=== PATIENT | female | born 1935 | race Caucasian/White ===

== ENCOUNTER 2018-02-28 08:18 | Inpatient (IN) | payer OTHER ==
[2018-02-28] MEDS: TRANEXAMIC ACID 1,000 MG in D5W 100 ML AT CLOSURE X1 IVPB (06:30)
[2018-02-28] MEDS: CEFAZOLIN 2 GM/50 ML (PMX) 50 ML (FOR WT < 120 KG) IVPB (06:30)
[2018-02-28] MEDS: TRANEXAMIC ACID 1,000 MG in D5W 100 ML AT INCISION X1 IVPB (06:30)
[~2018-02-28 08:18] MED LIST: BUPIVACAINE 0.75%/DEXT (SPINAL) 2 ML INJ; EPHEDrine SULFATE 50 MG/5 ML SYG
[2018-02-28] MEDS ORDERED: MAGNESIUM HYDROXIDE 30ML CUP PO (09:00)
[2018-02-28] MEDS ORDERED: NA PHOSPHATE/BIPHOS 133 ML ENEMA PR (09:00)
[2018-02-28] MEDS ORDERED: NACL 0.9% 3 ML SYG IV (09:00)
[2018-02-28] MEDS ORDERED: NALOXONE (0.4 MG/ML) INJ IV ×2 (09:00→12:30)
[2018-02-28] MEDS ORDERED: DIPHENHYDRAMINE 50 MG INJ IV ×3 (09:00→12:30)
[2018-02-28] MEDS ORDERED: BETHANECHOL 25 MG TAB PO (09:00)
[2018-02-28] MEDS ORDERED: BISACODYL 10 MG SUPP PR (09:00)
[2018-02-28] MEDS ORDERED: oxyCODONE 5 MG TAB PO ×2 (09:00)
[2018-02-28] MEDS ORDERED: SENNA/DOCUSATE NA (8.6MG/50MG) TAB PO (09:00)
[2018-02-28] MEDS ORDERED: CEFAZOLIN 1 GM INJ (10:08)
[2018-02-28] MEDS ORDERED: ROCURONIUM 50 MG INJ (10:08)
[2018-02-28] MEDS ORDERED: FENTAnyl 50 MCG/ML VIAL (10:08)
[2018-02-28] MEDS ORDERED: PROPOFOL 20 ML (10:08)
[2018-02-28] MEDS ORDERED: MIDAZOLAM 1 MG/ML 2 ML INJ (10:08)
[2018-02-28] MEDS ORDERED: NEOSTIGMINE 3 MG/3 ML SYRINGE (10:08)
[2018-02-28] MEDS ORDERED: GLYCOPYRROLATE 0.4 MG INJ (10:08)
[2018-02-28] MEDS ORDERED: ONDANSETRON 4 MG INJ (10:09)
[2018-02-28] MEDS ORDERED: DEXAMETHASONE 4 MG/ML 1 ML INJ (10:09)
[2018-02-28] MEDS ORDERED: morphine SULFATE/PF (10 MG/10 ML) INJ (10:10)
[2018-02-28] MEDS ORDERED: EPINEPHrine 1 MG INJ (10:10)
[2018-02-28] MEDS ORDERED: ALBUMIN HUMAN 5% 0 ML (10:18)
[2018-02-28] MEDS ORDERED: SUGAMMADEX SODIUM 200 MG/2 ML VIAL IV (11:36)
[2018-02-28] MEDS: BACITRACIN 50000 UNITS INJ (12:17)
[2018-02-28] MEDS: POLYMYXIN B 500000 UNIT INJ (12:18)
[2018-02-28] MEDS ORDERED: LABETALOL HCL 20MG INJ IV ×2 (12:30)
[2018-02-28] MEDS ORDERED: FENTAnyl 50 MCG/ML VIAL IV ×6 (12:30)
[2018-02-28] MEDS ORDERED: TRIMETHOBENZAMIDE 100 MG/ML VIAL IM ×2 (12:30)
[2018-02-28] MEDS ORDERED: hydrALAzine 20 MG INJ IV ×2 (12:30)
[2018-02-28] MEDS ORDERED: ALBUTEROL 0.083% (NEB) 2.5 MG/3 ML AMP HHN ×2 (12:30)
[2018-02-28] MEDS ORDERED: MEPERIDINE 25 MG INJ IV ×2 (12:30)
[2018-02-28] MEDS ORDERED: IPRATROPIUM (NEB) 0.5 MG/2.5 ML AMP HHN ×2 (12:30)
[2018-02-28] MEDS ORDERED: ONDANSETRON 4 MG INJ IV ×2 (12:30)
[2018-02-28] MEDS ORDERED: OXYCODONE/ACETAMINOPHEN (5/325) TAB PO ×4 (12:30)
[2018-02-28] MEDS ORDERED: HYDROmorphONE 1 MG/5 ML IV SYRINGE IV ×6 (12:30)
[2018-02-28] MEDS ORDERED: MIDAZOLAM 1 MG/ML 2 ML INJ IV ×2 (12:30)
[2018-02-28] MEDS ORDERED: EPHEDrine SULFATE 50 MG/5 ML SYG IV ×2 (12:30)
[2018-02-28] MEDS: CEFAZOLIN 1 GM/50 ML (PMX) 50 ML IVPB ×2 (13:49→18:18)
[2018-02-28] MEDS: ASPIRIN (EC) 325 MG TAB PO (13:50)
[2018-02-28] MEDS: DOCUSATE SODIUM 100 MG CAP PO (13:50)
[2018-02-28] MEDS: SOD CHLORIDE 0.9% 1,000 ML IV ×2 (14:46→18:18)
[2018-02-28] MEDS: ONDANSETRON 4 MG INJ IV ×3 (14:48→20:22)
[2018-02-28] MEDS: GABAPENTIN 100 MG CAP PO (20:21)
[2018-02-28] MEDS: ATORVASTATIN 20 MG TAB PO (20:21)
[2018-02-28] MEDS: DULOXETINE 30 MG CAP DR PO (21:14)
[2018-02-28] MEDS: DONEPEZIL 10 MG TAB PO (21:15)
[2018-03-01] MEDS: CEFAZOLIN 1 GM/50 ML (PMX) 50 ML IVPB (01:12)
[2018-03-01] MEDS: ONDANSETRON 4 MG INJ IV (03:51)
[2018-03-01 04:56] LABS: ADD MAN DIFF? NO
[2018-03-01 05:01] LABS: BASOPHILS % 0.1 % (0.0-2.0); HEMATOCRIT 35.3 % (37.0-47.0); HEMOGLOBIN 11.4 g/dl (12.0-16.0); LYMPHOCYTES # 0.7 10^3/ul (0.8-2.9); LYMPHOCYTES % 6.9 % (15.0-51.0); MEAN CORPUSCULAR HEMOGLOBIN 29.7 pg (29.0-33.0); MEAN CORPUSCULAR HGB CONC 32.3 g/dl (32.0-37.0); MEAN CORPUSCULAR VOLUME 91.9 fl (82.0-101.0); MEAN PLATELET VOLUME 9.3 fl (7.4-10.4); MONOCYTE # 0.7 10^3/ul (0.3-0.9); MONOCYTES % 7.6 % (0.0-11.0); NEUTROPHIL # 8.1 10^3/ul (1.6-7.5); NEUTROPHILS % 85.2 % (39.0-77.0); PLATELET COUNT 215 10^3/UL (140-415); RED BLOOD COUNT 3.84 10^6/ul (4.20-5.40); RED CELL DISTRIBUTION WIDTH 13.4 % (11.5-14.5)
[2018-03-01 05:01] LABS: WHITE BLOOD COUNT 9.6 10^3/ul (4.8-10.8)
[2018-03-01 05:25] LABS: ANION GAP 11 (8-16); BLOOD UREA NITROGEN 17 mg/dl (7-20); CALCIUM 8.8 mg/dl (8.4-10.2); CARBON DIOXIDE 26 mmol/L (21-31); CHLORIDE 105 mmol/L (97-110); CREATININE 0.64 mg/dl (0.44-1.00); GLUCOSE 126 mg/dl (70-220); SODIUM 137 mmol/L (135-144)
[2018-03-01 05:37] LABS: PHOSPHORUS 4.5 mg/dl (2.5-4.9)
[2018-03-01 05:37] LABS: MAGNESIUM 1.8 mg/dl (1.7-2.5)
[2018-03-01] MEDS: PANTOPRAZOLE (EC) 40 MG TAB PO (06:37)
[2018-03-01] MEDS: GABAPENTIN 100 MG CAP PO ×2 (08:51→20:23)
[2018-03-01] MEDS: CELECOXIB 100 MG CAP PO (08:51)
[2018-03-01] MEDS: ASPIRIN (EC) 325 MG TAB PO (08:51)
[2018-03-01] MEDS ORDERED: DULOXETINE 30 MG CAP DR PO (09:00)
[2018-03-01] MEDS ORDERED: DONEPEZIL 10 MG TAB PO (09:00)
[2018-03-01 09:13] LABS: HEMOGLOBIN A1C 5.2 % (0-5.9)
[2018-03-01] MEDS: SOD CHLORIDE 0.9% 1,000 ML IV (09:45)
[2018-03-01] MEDS: DULOXETINE 30 MG CAP DR PO (17:00)
[2018-03-01] MEDS: DONEPEZIL 10 MG TAB PO (17:54)
[2018-03-01] MEDS: oxyCODONE 5 MG TAB PO (19:34)
[2018-03-01] MEDS: DOCUSATE SODIUM 100 MG CAP PO (20:23)
[2018-03-01] MEDS: FERROUS FUMARATE (SR) TAB PO (20:23)
== END 2018-03-01 22:05 | DRG 470 ==
LOC: REC 08:18 → MS1 16:06
PROC: 0SRB04A Replacement of Left Hip Joint with Ceramic on Polyethylene Synthetic Substitute, Uncemented, Open Approach (ICD-10-PCS; principal; 2018-02-28 11:30)
DX: M16.12 Unilateral primary osteoarthritis, left hip (principal); E78.5 Hyperlipidemia, unspecified; F03.90 Unspecified dementia, unspecified severity, without behavioral disturbance, psychotic disturbance, mood disturbance, and anxiety; Z96.641 Presence of right artificial hip joint
CPT/HCPCS: 73530; 80048; 83036; 83735; 84100; 85025; 86850; 86900; 86901; 87081; 88304; 88311; 97161; 97165